=== PATIENT | male | born 1950 | race Caucasian/White ===

== ENCOUNTER 2018-01-26 13:26 | Emergency (ER) | payer MEDICARE, OTHER ==
[2018-01-26] MEDS: NICARDipine HCL 30 MG CAPSULE PO ×2 (13:45→14:26)
== END 2018-01-26 14:29 | disposition home or self-care (01) ==
LOC: E/R 13:26
DX: I12.0 Hypertensive chronic kidney disease with stage 5 chronic kidney disease or end stage renal disease (principal); R40.2142 Coma scale, eyes open, spontaneous, at arrival to emergency department; R40.2252 Coma scale, best verbal response, oriented, at arrival to emergency department; R40.2362 Coma scale, best motor response, obeys commands, at arrival to emergency department; N18.6 End stage renal disease; Z79.82 Long term (current) use of aspirin; Z99.2 Dependence on renal dialysis; Z87.891 Personal history of nicotine dependence
CPT/HCPCS: 93005; 99283; 99283-25

== ENCOUNTER 2018-11-05 09:40 | Inpatient (IN) | payer MEDICARE, OTHER ==
[2018-11-05 09:56] LABS: ADD MAN DIFF? NO
[2018-11-05] MEDS: ALBUTEROL 0.5% (NEB) 2.5 MG/0.5 ML AMP INH (09:59)
[2018-11-05 10:00] LABS: WHITE BLOOD COUNT 19.6 10^3/ul (4.8-10.8)
[2018-11-05 10:00] LABS: BASOPHILS % 0.2 % (0.0-2.0); EOSINOPHILS % 0.2 % (0.0-7.0); HEMATOCRIT 31.5 % (42.0-52.0); HEMOGLOBIN 9.9 g/dl (14.0-18.0); LYMPHOCYTES # 2.8 10^3/ul (0.8-2.9); LYMPHOCYTES % 14.1 % (15.0-51.0); MEAN CORPUSCULAR HEMOGLOBIN 30.3 pg (29.0-33.0); MEAN CORPUSCULAR HGB CONC 31.4 g/dl (32.0-37.0); MEAN CORPUSCULAR VOLUME 96.3 fl (82.0-101.0); MEAN PLATELET VOLUME 11.2 fl (7.4-10.4); MONOCYTE # 0.4 10^3/ul (0.3-0.9); MONOCYTES % 2.1 % (0.0-11.0); NEUTROPHIL # 16.2 10^3/ul (1.6-7.5); NEUTROPHILS % 82.6 % (39.0-77.0); PLATELET COUNT 347 10^3/UL (140-415); RED BLOOD COUNT 3.27 10^6/ul (4.70-6.10); RED CELL DISTRIBUTION WIDTH 14.3 % (11.5-14.5)
[2018-11-05] MEDS: NITROGLYCERIN 50 MG/D5W (PMX) 250 ML IV (10:01)
[2018-11-05] MEDS: ENALAPRILAT 1.25 MG INJ IV (10:17)
[2018-11-05 10:20] LABS: ALANINE AMINOTRANSFERASE 58 IU/L (13-69); ALBUMIN 4.3 g/dl (3.3-4.9); ALBUMIN/GLOBULIN RATIO 1.07; ALKALINE PHOSPHATASE 154 IU/L (42-121); ANION GAP 20 (5-13); ASPARTATE AMINO TRANSFERASE 99 IU/L (15-46); BILIRUBIN,INDIRECT 0.3 mg/dl (0-1.1); BILIRUBIN,TOTAL 0.3 mg/dl (0.2-1.3); BLOOD UREA NITROGEN 62 mg/dl (7-20); CALCIUM 8.9 mg/dl (8.4-10.2); CARBON DIOXIDE 20 mmol/L (21-31); CHLORIDE 98 mmol/L (97-110); CREATININE 10.22 mg/dl (0.61-1.24); Estimated GFR 5 mL/min (>60); GLUCOSE 321 mg/dl (70-220); POTASSIUM 5.4 mmol/L (3.5-5.1); SODIUM 138 mmol/L (135-144); TOTAL PROTEIN 8.3 g/dl (6.1-8.1)
[2018-11-05 10:39] LABS: TROPONIN-I 0.311 ng/ml (0.000-0.120)
[2018-11-05] MEDS: ASPIRIN 325 MG TAB PO (11:00)
[2018-11-05] MEDS ORDERED: ACETAMINOPHEN 325 MG TAB PO ×2 (12:00→15:30)
[2018-11-05] MEDS ORDERED: ONDANSETRON 4 MG INJ IV ×2 (12:00→15:30)
[2018-11-05] MEDS: CEFTRIAXONE 1 GM/50 ML (PMX) 50 ML IVPB (15:20)
[2018-11-05 15:29] LABS: B-TYPE NATRIURETIC PEPTIDE 29600 PG/ML (0-125)
[2018-11-05] MEDS ORDERED: GLUCOSE GEL 15 GRAM TUBE PO ×2 (15:30)
[2018-11-05] MEDS ORDERED: DEXTROSE 50% 50 ML SYRINGE IV ×2 (15:30)
[2018-11-05] MEDS ORDERED: ACETAMINOPHEN 650 MG SUPP PR (15:30)
[2018-11-05] MEDS ORDERED: NACL 0.9% 3 ML SYG IV (15:30)
[2018-11-05] MEDS ORDERED: GLUCAGON 1 MG INJ IM (15:30)
[2018-11-05] MEDS ORDERED: GLUCOSE GEL 15 GRAM TUBE BUCCAL (15:30)
[2018-11-05] MEDS: INSULIN ASPART [NOVOLOG] 3 ML PEN SC ×2 (17:30→21:52)
[2018-11-05 17:32] LABS: CREATINE KINASE 80 IU/L (23-200)
[2018-11-05 17:42] LABS: CK INDEX 4.1
[2018-11-05 17:47] LABS: TROPONIN-I 0.766 ng/ml (0.000-0.120)
[2018-11-05 17:49] LABS: CK-MB 3.27 ng/ml (0.0-2.4)
[2018-11-05 19:34] LABS: HEPATITIS B SURFACE ANTIGEN NEGATIVE (NEGATIVE)
[2018-11-05 19:52] LABS: HEPATITIS B SURFACE ANTIBODY POSITIVE (NEGATIVE)
[2018-11-05] MEDS: HEPARIN 1000 UNITS/ML 10 ML INJ CATHETER (20:20)
[2018-11-05] MEDS: ALBUTEROL/IPRATROPIUM (NEB) 3 ML AMP HHN (21:00)
[2018-11-05] MEDS: ATORVASTATIN 80 MG TAB PO (21:28)
[2018-11-05] MEDS: FAMOTIDINE 20 MG TAB PO (21:28)
[2018-11-05] MEDS: HEPARIN 5,000 UNIT/1 ML VIAL SC (21:51)
[2018-11-05] MEDS: INSULIN GLARGINE [LANTus] (100 UNITS/ML) SYG SC (21:51)
[2018-11-05 23:26] LABS: CREATINE KINASE 71 IU/L (23-200)
[2018-11-05 23:37] LABS: CK INDEX 4.1
[2018-11-05 23:41] LABS: CK-MB 2.89 ng/ml (0.0-2.4); TROPONIN-I 0.931 ng/ml (0.000-0.120)
[2018-11-06 00:33] LABS: AADO2 Arterial 133.4 mmHg (7.0-24.0); Allen Test ACCEPTAB; Arterial Base Excess 6.7 mmol/L (-3.0-3); Arterial Blood Gas Oxygen Sat 91.4 mmHG (95.0-98.0); Arterial COHb 0.3 % (0.0-3.0); Arterial Fraction of Oxyhgb 90.9 % (93.0-99.0); Arterial HCO3 30.1 mmol/L (22.0-26.0); Arterial MetHb 0.3 % (0.0-1.5); Arterial pCO2 38.2 mmhg (35-45); MODE NASAL CANNULA; Site Right Brachial
[2018-11-06] MEDS: ALBUTEROL/IPRATROPIUM (NEB) 3 ML AMP HHN ×3 (01:14→22:36)
[2018-11-06] MEDS: ASPIRIN (EC) 81 MG TAB PO ×2 (01:37→09:00)
[2018-11-06] MEDS: ACCU-CHEK XX (01:48)
[2018-11-06] MEDS: INSULIN ASPART [NOVOLOG] 3 ML PEN SC ×2 (01:48→05:00)
[2018-11-06] MEDS ORDERED: LIDOCAINE 1% (MDV) 20 ML INJ (06:51)
[2018-11-06] MEDS ORDERED: IODIXANOL LOCM 100 ML BTL (06:51)
[2018-11-06 07:02] LABS: ADD MAN DIFF? NO
[2018-11-06 07:20] LABS: BASOPHILS % 0.4 % (0.0-2.0); EOSINOPHILS # 0.2 10^3/ul (0.0-0.5); EOSINOPHILS % 2.1 % (0.0-7.0); HEMATOCRIT 23.3 % (42.0-52.0); HEMOGLOBIN 7.5 g/dl (14.0-18.0); LYMPHOCYTES # 1.3 10^3/ul (0.8-2.9); LYMPHOCYTES % 12.8 % (15.0-51.0); MEAN CORPUSCULAR HEMOGLOBIN 30.5 pg (29.0-33.0); MEAN CORPUSCULAR HGB CONC 32.2 g/dl (32.0-37.0); MEAN CORPUSCULAR VOLUME 94.7 fl (82.0-101.0); MEAN PLATELET VOLUME 11.6 fl (7.4-10.4); MONOCYTE # 0.8 10^3/ul (0.3-0.9); MONOCYTES % 7.6 % (0.0-11.0); NEUTROPHIL # 7.5 10^3/ul (1.6-7.5); NEUTROPHILS % 76.5 % (39.0-77.0); PLATELET COUNT 217 10^3/UL (140-415); RED BLOOD COUNT 2.46 10^6/ul (4.70-6.10); RED CELL DISTRIBUTION WIDTH 14.3 % (11.5-14.5)
[2018-11-06 07:20] LABS: WHITE BLOOD COUNT 9.8 10^3/ul (4.8-10.8)
[2018-11-06] MEDS ORDERED: FENTAnyl 50 MCG/ML VIAL (07:27)
[2018-11-06] MEDS ORDERED: MIDAZOLAM 1 MG/ML 2 ML INJ (07:27)
[2018-11-06 07:31] LABS: HEMOGLOBIN A1C 5.7 % (0-5.9)
[2018-11-06 07:34] LABS: INR 1.13; PARTIAL THROMBOPLASTIN TIME 30.2 Sec (23.0-35.0); PROTIME 14.6 Sec (11.9-14.9); PT RATIO 1.1
[2018-11-06 07:39] LABS: CREATINE KINASE 62 IU/L (23-200)
[2018-11-06 07:41] LABS: IRON 50 ug/dl (35-150)
[2018-11-06] MEDS ORDERED: CLOPIDOGREL 300 MG TAB ×2 (07:47→08:18)
[2018-11-06 07:51] LABS: % IRON SATURATION 30 % SAT (22-52); CK INDEX 4.1; TOTAL IRON BINDING CAPACITY 167 ug/dl (241-421)
[2018-11-06 07:57] LABS: ALANINE AMINOTRANSFERASE 43 IU/L (13-69); ALBUMIN 3.3 g/dl (3.3-4.9); ALKALINE PHOSPHATASE 82 IU/L (42-121); ANION GAP 12 (5-13); ASPARTATE AMINO TRANSFERASE 40 IU/L (15-46); BILIRUBIN,INDIRECT 0.3 mg/dl (0-1.1); BILIRUBIN,TOTAL 0.3 mg/dl (0.2-1.3); BLOOD UREA NITROGEN 37 mg/dl (7-20); CALCIUM 8.5 mg/dl (8.4-10.2); CARBON DIOXIDE 30 mmol/L (21-31); CHLORIDE 97 mmol/L (97-110); CREATININE 6.19 mg/dl (0.61-1.24); Estimated GFR 9 mL/min (>60); GLUCOSE 72 mg/dl (70-220); POTASSIUM 4.6 mmol/L (3.5-5.1); SODIUM 139 mmol/L (135-144); TOTAL PROTEIN 6.3 g/dl (6.1-8.1)
[2018-11-06 07:58] LABS: CHOL/HDL RATIO 3.6 RATIO; CHOLESTEROL 140 mg/dl (100-200); HDL CHOLESTEROL 38 mg/dl (30-78); LDL CHOLESTEROL,CALCULATED 87 mg/dl; MAGNESIUM 2.2 mg/dl (1.7-2.5); TRIGLYCERIDES 77 mg/dl (0-149)
[2018-11-06 07:58] LABS: PHOSPHORUS 5.3 mg/dl (2.5-4.9)
[2018-11-06] MEDS ORDERED: BIVALIRUDIN 250MG /NS 50 ML 50 ML IVPB (08:01)
[2018-11-06 08:16] LABS: CK-MB 2.57 ng/ml (0.0-2.4); TROPONIN-I 0.971 ng/ml (0.000-0.120)
[2018-11-06] MEDS: SOD CHLORIDE 0.9% 1,000 ML IV (08:16)
[2018-11-06] MEDS: BIVALIRUDIN 250 MG in SOD CHLORIDE 0.9% 500 ML IV (08:30)
[2018-11-06] MEDS ORDERED: OXYCODONE/ACETAMINOPHEN (5/325) TAB PO (08:30)
[2018-11-06 08:56] LABS: FREE T4 (FREE THYROXINE) 1.23 ng/dl (0.78-2.44)
[2018-11-06] MEDS: NIFEdipine (XL) 30 MG TAB PO (09:00)
[2018-11-06] MEDS: FAMOTIDINE 20 MG TAB PO (09:00)
[2018-11-06] MEDS: LOSARTAN 50 MG TAB PO (09:00)
[2018-11-06] MEDS: CHOLECALCIFEROL 1,000 UNIT TAB PO (09:00)
[2018-11-06] MEDS ORDERED: INFLUENZA VIRUS VACCINE 0.5 ML (DISPENSING) IM* (09:00)
[2018-11-06] MEDS ORDERED: MINOXIDIL 2.5 MG TAB PO (09:00)
[2018-11-06] MEDS ORDERED: morphine 2 MG INJ (10:44)
[2018-11-06] MEDS: morphine 2 MG INJ IV (10:59)
[2018-11-06] MEDS: SOD CHLORIDE 0.9% 250 ML IV* (11:04)
[2018-11-06] MEDS: ACETAMINOPHEN 325 MG TAB PO (13:18)
[2018-11-06] MEDS: CEFTRIAXONE 1 GM/50 ML (PMX) 50 ML IVPB (16:49)
[2018-11-06 20:54] LABS: IMMEDIATE SPIN CROSSMATCH 1 2
[2018-11-06] MEDS: HEPARIN 1000 UNITS/ML 10 ML INJ CATHETER (22:25)
[2018-11-07] MEDS: ATORVASTATIN 80 MG TAB PO ×2 (00:17→22:16)
[2018-11-07] MEDS: FAMOTIDINE 20 MG TAB PO ×3 (00:18→22:19)
[2018-11-07] MEDS: ALBUTEROL/IPRATROPIUM (NEB) 3 ML AMP HHN ×6 (01:30→20:07)
[2018-11-07 06:05] LABS: ADD MAN DIFF? NO
[2018-11-07 06:06] LABS: WHITE BLOOD COUNT 7.9 10^3/ul (4.8-10.8)
[2018-11-07 06:06] LABS: BASOPHIL # 0.1 10^3/ul (0.0-0.1); EOSINOPHILS # 0.5 10^3/ul (0.0-0.5); EOSINOPHILS % 6.8 % (0.0-7.0); HEMOGLOBIN 9.1 g/dl (14.0-18.0); LYMPHOCYTES # 0.9 10^3/ul (0.8-2.9); LYMPHOCYTES % 11.8 % (15.0-51.0); MEAN CORPUSCULAR HEMOGLOBIN 29.8 pg (29.0-33.0); MEAN CORPUSCULAR HGB CONC 32.5 g/dl (32.0-37.0); MEAN CORPUSCULAR VOLUME 91.8 fl (82.0-101.0); MEAN PLATELET VOLUME 11.4 fl (7.4-10.4); MONOCYTE # 0.8 10^3/ul (0.3-0.9); MONOCYTES % 10.2 % (0.0-11.0); NEUTROPHIL # 5.5 10^3/ul (1.6-7.5); NEUTROPHILS % 69.9 % (39.0-77.0); PLATELET COUNT 206 10^3/UL (140-415); RED BLOOD COUNT 3.05 10^6/ul (4.70-6.10); RED CELL DISTRIBUTION WIDTH 15.5 % (11.5-14.5)
[2018-11-07 06:33] LABS: ANION GAP 9 (5-13); BLOOD UREA NITROGEN 27 mg/dl (7-20); CALCIUM 8.7 mg/dl (8.4-10.2); CARBON DIOXIDE 26 mmol/L (21-31); CHLORIDE 106 mmol/L (97-110); CREATINE KINASE 112 IU/L (23-200); Estimated GFR 12 mL/min (>60); GLUCOSE 83 mg/dl (70-220); POTASSIUM 4.7 mmol/L (3.5-5.1); SODIUM 141 mmol/L (135-144)
[2018-11-07 06:38] LABS: CK INDEX 7.2
[2018-11-07 06:48] LABS: CK-MB 8.06 ng/ml (0.0-2.4)
[2018-11-07] MEDS: CHOLECALCIFEROL 1,000 UNIT TAB PO (08:10)
[2018-11-07] MEDS: ASPIRIN (EC) 81 MG TAB PO (08:11)
[2018-11-07] MEDS: CLOPIDOGREL 75 MG TAB PO (08:11)
[2018-11-07] MEDS: NIFEdipine (XL) 30 MG TAB PO (08:11)
[2018-11-07] MEDS: LOSARTAN 50 MG TAB PO (08:12)
[2018-11-07] MEDS: CEFTRIAXONE 1 GM/50 ML (PMX) 50 ML IVPB (16:20)
[2018-11-07] MEDS: hydrALAzine 20 MG INJ IV (16:50)
[2018-11-08] MEDS: ALBUTEROL/IPRATROPIUM (NEB) 3 ML AMP HHN ×3 (00:16→09:44)
[2018-11-08 05:58] LABS: ADD MAN DIFF? NO
[2018-11-08 06:20] LABS: BASOPHIL # 0.1 10^3/ul (0.0-0.1); BASOPHILS % 0.7 % (0.0-2.0); EOSINOPHILS # 0.6 10^3/ul (0.0-0.5); EOSINOPHILS % 8.7 % (0.0-7.0); HEMATOCRIT 26.1 % (42.0-52.0); HEMOGLOBIN 8.7 g/dl (14.0-18.0); LYMPHOCYTES % 14.3 % (15.0-51.0); MEAN CORPUSCULAR HEMOGLOBIN 30.3 pg (29.0-33.0); MEAN CORPUSCULAR HGB CONC 33.3 g/dl (32.0-37.0); MEAN CORPUSCULAR VOLUME 90.9 fl (82.0-101.0); MEAN PLATELET VOLUME 11.4 fl (7.4-10.4); MONOCYTE # 0.9 10^3/ul (0.3-0.9); MONOCYTES % 13.5 % (0.0-11.0); NEUTROPHIL # 4.3 10^3/ul (1.6-7.5); NEUTROPHILS % 62.5 % (39.0-77.0); PLATELET COUNT 173 10^3/UL (140-415); RED BLOOD COUNT 2.87 10^6/ul (4.70-6.10); RED CELL DISTRIBUTION WIDTH 14.8 % (11.5-14.5)
[2018-11-08 06:20] LABS: WHITE BLOOD COUNT 6.9 10^3/ul (4.8-10.8)
[2018-11-08 06:29] LABS: ALANINE AMINOTRANSFERASE 34 IU/L (13-69); ALBUMIN 3.4 g/dl (3.3-4.9); ALBUMIN/GLOBULIN RATIO 1.17; ALKALINE PHOSPHATASE 76 IU/L (42-121); ANION GAP 14 (5-13); ASPARTATE AMINO TRANSFERASE 29 IU/L (15-46); BILIRUBIN,INDIRECT 0.4 mg/dl (0-1.1); BILIRUBIN,TOTAL 0.4 mg/dl (0.2-1.3); BLOOD UREA NITROGEN 30 mg/dl (7-20); CALCIUM 8.2 mg/dl (8.4-10.2); CARBON DIOXIDE 29 mmol/L (21-31); CHLORIDE 97 mmol/L (97-110); CREATININE 4.55 mg/dl (0.61-1.24); Estimated GFR 13 mL/min (>60); GLUCOSE 89 mg/dl (70-220); POTASSIUM 4.1 mmol/L (3.5-5.1); SODIUM 140 mmol/L (135-144); TOTAL PROTEIN 6.3 g/dl (6.1-8.1)
[2018-11-08 06:32] LABS: CREATINE KINASE 74 IU/L (23-200)
[2018-11-08 06:43] LABS: CK INDEX 4.4
[2018-11-08 06:44] LABS: CK-MB 3.25 ng/ml (0.0-2.4)
[2018-11-08] MEDS: NIFEdipine (XL) 30 MG TAB PO (08:15)
[2018-11-08] MEDS: CLOPIDOGREL 75 MG TAB PO (08:15)
[2018-11-08] MEDS: CHOLECALCIFEROL 1,000 UNIT TAB PO (08:15)
[2018-11-08] MEDS: ASPIRIN (EC) 81 MG TAB PO (08:16)
[2018-11-08] MEDS: LOSARTAN 50 MG TAB PO (08:16)
[2018-11-08] MEDS: FAMOTIDINE 20 MG TAB PO (08:16)
[2018-11-08] MEDS ORDERED: EPOETIN 10000 UNITS/1 ML INJ (ESRD) SC (17:00)
== END 2018-11-08 16:15 | disposition home or self-care (01) | DRG 246 ==
LOC: 6WM 11-06 10:21 → E/R 09:40 → REC 11-06 10:28 → 6WM 11-06 15:57
PROC: 027034Z Dilation of Coronary Artery, One Artery with Drug-eluting Intraluminal Device, Percutaneous Approach (ICD-10-PCS; principal; 2018-11-06 07:13)
PROC: 5A09457 Assistance with Respiratory Ventilation, 24-96 Consecutive Hours, Continuous Positive Airway Pressure (ICD-10-PCS; 2018-11-06 07:13)
PROC: 5A1D70Z Performance of Urinary Filtration, Intermittent, Less than 6 Hours Per Day (ICD-10-PCS; 2018-11-06 07:13)
PROC: 5A1D70Z Performance of Urinary Filtration, Intermittent, Less than 6 Hours Per Day (ICD-10-PCS; 2018-11-06 07:13)
PROC: 5A1D70Z Performance of Urinary Filtration, Intermittent, Less than 6 Hours Per Day (ICD-10-PCS; 2018-11-06 07:13)
PROC: 4A023N7 Measurement of Cardiac Sampling and Pressure, Left Heart, Percutaneous Approach (ICD-10-PCS; 2018-11-06 07:13)
PROC: B211YZZ Fluoroscopy of Multiple Coronary Arteries using Other Contrast (ICD-10-PCS; 2018-11-06 07:13)
PROC: B215YZZ Fluoroscopy of Left Heart using Other Contrast (ICD-10-PCS; 2018-11-06 07:13)
PROC: 30233N1 Transfusion of Nonautologous Red Blood Cells into Peripheral Vein, Percutaneous Approach (ICD-10-PCS; 2018-11-06 07:13)
DX: I21.4 Non-ST elevation (NSTEMI) myocardial infarction (principal); J96.01 Acute respiratory failure with hypoxia; I50.33 Acute on chronic diastolic (congestive) heart failure; N18.6 End stage renal disease; I13.2 Hypertensive heart and chronic kidney disease with heart failure and with stage 5 chronic kidney disease, or end stage renal disease; E87.5 Hyperkalemia; D63.1 Anemia in chronic kidney disease; E55.9 Vitamin D deficiency, unspecified; I25.10 Atherosclerotic heart disease of native coronary artery without angina pectoris; M1A.9XX0 Chronic gout, unspecified, without tophus (tophi); G47.33 Obstructive sleep apnea (adult) (pediatric); Z79.82 Long term (current) use of aspirin; Z99.2 Dependence on renal dialysis; Z87.891 Personal history of nicotine dependence
CPT/HCPCS: 36415; 36430; 36600; 71045; 80048; 80053; 80061; 82550; 82553; 82728; 82803; 82962; 83036; 83540; 83735; 83880; 84100; 84439; 84443; 84484; 85025; 85610; 85730; 86706; 86850; 86900; 86901; 86920; 87040; 87340; 87400; 90686; 90935; 93005; 93306; 93458; 94640; 94644; 94660; 94664; 96374; 99285-25; J0583

== ENCOUNTER 2018-12-11 13:36 | Inpatient (IN) | payer MEDICARE, OTHER ==
[2018-12-11] MEDS: SOD CHLORIDE 0.9% 1,000 ML IV (00:15)
[2018-12-11 14:46] LABS: ADD MAN DIFF? NO
[2018-12-11 14:50] LABS: WHITE BLOOD COUNT 5.6 10^3/ul (4.8-10.8)
[2018-12-11 14:50] LABS: ABNORMAL IP MESSAGE 1; BASOPHILS % 0.4 % (0.0-2.0); EOSINOPHILS # 0.4 10^3/ul (0.0-0.5); EOSINOPHILS % 7.6 % (0.0-7.0); HEMATOCRIT 18.6 % (42.0-52.0); LYMPHOCYTES % 17.4 % (15.0-51.0); MEAN CORPUSCULAR HEMOGLOBIN 31.6 pg (29.0-33.0); MEAN CORPUSCULAR HGB CONC 33.3 g/dl (32.0-37.0); MEAN CORPUSCULAR VOLUME 94.9 fl (82.0-101.0); MEAN PLATELET VOLUME 10.4 fl (7.4-10.4); MONOCYTE # 0.6 10^3/ul (0.3-0.9); MONOCYTES % 10.5 % (0.0-11.0); NEUTROPHIL # 3.6 10^3/ul (1.6-7.5); NEUTROPHILS % 63.7 % (39.0-77.0); PLATELET COUNT 135 10^3/UL (140-415); POSITIVE DIFF @See below; RED BLOOD COUNT 1.96 10^6/ul (4.70-6.10)
[2018-12-11 14:58] LABS: HEMOGLOBIN 6.2 g/dl (14.0-18.0)
[2018-12-11 14:59] LABS: PATH REVIEW? YES
[2018-12-11 15:08] LABS: INR 1.07; PT RATIO 1.1
[2018-12-11 15:09] LABS: PARTIAL THROMBOPLASTIN TIME 31.8 Sec (23.0-35.0)
[2018-12-11 15:17] LABS: ALANINE AMINOTRANSFERASE 16 IU/L (13-69); ALBUMIN 3.5 g/dl (3.3-4.9); ALBUMIN/GLOBULIN RATIO 1.16; ALKALINE PHOSPHATASE 70 IU/L (42-121); ANION GAP 13 (5-13); ASPARTATE AMINO TRANSFERASE 17 IU/L (15-46); BILIRUBIN,INDIRECT 0.1 mg/dl (0-1.1); BILIRUBIN,TOTAL 0.1 mg/dl (0.2-1.3); BLOOD UREA NITROGEN 54 mg/dl (7-20); CARBON DIOXIDE 28 mmol/L (21-31); CHLORIDE 98 mmol/L (97-110); CREATININE 7.27 mg/dl (0.61-1.24); Estimated GFR 8 mL/min (>60); GLUCOSE 105 mg/dl (70-220); POTASSIUM 4.8 mmol/L (3.5-5.1); SODIUM 139 mmol/L (135-144); TOTAL PROTEIN 6.5 g/dl (6.1-8.1)
[2018-12-11 15:27] LABS: TROPONIN-I 0.016 ng/ml (0.000-0.120)
[2018-12-11 15:51] LABS: ANISOCYTOSIS 3+ (0-0); BAND NEUTROPHILS #M 0.1 10^3/ul (0.0-0.6); BAND NEUTROPHILS % (M) 2 % (0-4); EOSINOPHILS % (M) 11 % (0-7); HYPOCHROMASIA 3+ (0-0); LYMPHOCYTES #M 0.9 10^3/ul (0.8-2.9); LYMPHOCYTES % (M) 17 % (15-51); MICROCYTOSIS 3+ (0-0); MONOCYTE #M 0.4 10^3/ul (0.3-0.9); MONOCYTES % (M) 8 % (0-11); PLATELET ESTIMATE DECREASED; POIKILOCYTOSIS 3+ (0-0); POLYCHROMASIA 2+ (0-0); SEG NEUT #M 3.5 10^3/ul (1.6-7.5); SEGMENTED NEUTROPHILS (M) % 62 % (39-77); SMUDGE%M 4 % (0-0)
[2018-12-11] MEDS ORDERED: ACETAMINOPHEN 325 MG TAB PO ×2 (19:30→21:00)
[2018-12-11] MEDS ORDERED: ONDANSETRON 4 MG INJ IV ×2 (19:30→21:00)
[2018-12-11] MEDS ORDERED: DOCUSATE SODIUM 100 MG CAP PO (21:00)
[2018-12-11] MEDS: ALBUTEROL HFA 8 GM INHALER INH (21:00)
[2018-12-11] MEDS ORDERED: morphine 2 MG INJ IV (21:00)
[2018-12-11] MEDS ORDERED: NACL 0.9% 3 ML SYG IV (21:00)
[2018-12-11] MEDS ORDERED: BISACODYL (EC) 5 MG TAB PO (21:00)
[2018-12-12] MEDS: ALBUTEROL HFA 8 GM INHALER INH ×6 (01:00→21:32)
[2018-12-12 01:07] LABS: HEMATOCRIT 20.5 % (42.0-52.0); HEMOGLOBIN 7.1 g/dl (14.0-18.0)
[2018-12-12] MEDS ORDERED: FUROSEMIDE 20 MG INJ IV (02:00)
[2018-12-12 07:37] LABS: ADD MAN DIFF? NO
[2018-12-12 07:39] LABS: WHITE BLOOD COUNT 6.7 10^3/ul (4.8-10.8)
[2018-12-12 07:39] LABS: BASOPHILS % 0.4 % (0.0-2.0); EOSINOPHILS # 0.5 10^3/ul (0.0-0.5); EOSINOPHILS % 7.7 % (0.0-7.0); HEMATOCRIT 23.4 % (42.0-52.0); LYMPHOCYTES # 0.9 10^3/ul (0.8-2.9); LYMPHOCYTES % 12.8 % (15.0-51.0); MEAN CORPUSCULAR HEMOGLOBIN 31.1 pg (29.0-33.0); MEAN CORPUSCULAR HGB CONC 34.2 g/dl (32.0-37.0); MEAN CORPUSCULAR VOLUME 91.1 fl (82.0-101.0); MEAN PLATELET VOLUME 10.4 fl (7.4-10.4); MONOCYTE # 0.6 10^3/ul (0.3-0.9); MONOCYTES % 8.9 % (0.0-11.0); NEUTROPHIL # 4.7 10^3/ul (1.6-7.5); NEUTROPHILS % 69.9 % (39.0-77.0); PLATELET COUNT 105 10^3/UL (140-415); RED BLOOD COUNT 2.57 10^6/ul (4.70-6.10); RED CELL DISTRIBUTION WIDTH 15.6 % (11.5-14.5)
[2018-12-12 08:02] LABS: ALANINE AMINOTRANSFERASE 17 IU/L (13-69); ALBUMIN 3.2 g/dl (3.3-4.9); ALBUMIN/GLOBULIN RATIO 1.33; ALKALINE PHOSPHATASE 57 IU/L (42-121); ANION GAP 12 (5-13); ASPARTATE AMINO TRANSFERASE 18 IU/L (15-46); BILIRUBIN,INDIRECT 0.6 mg/dl (0-1.1); BILIRUBIN,TOTAL 0.6 mg/dl (0.2-1.3); BLOOD UREA NITROGEN 65 mg/dl (7-20); CALCIUM 7.7 mg/dl (8.4-10.2); CARBON DIOXIDE 24 mmol/L (21-31); CHLORIDE 100 mmol/L (97-110); Estimated GFR 6 mL/min (>60); GLUCOSE 88 mg/dl (70-220); MAGNESIUM 2.2 mg/dl (1.7-2.5); POTASSIUM 5.8 mmol/L (3.5-5.1); SODIUM 136 mmol/L (135-144); TOTAL PROTEIN 5.6 g/dl (6.1-8.1)
[2018-12-12] MEDS: NIFEdipine (XL) 30 MG TAB PO (09:00)
[2018-12-12] MEDS: SOD CHLORIDE 0.9% 250 ML IV* (10:17)
[2018-12-12 13:26] LABS: IMMEDIATE SPIN CROSSMATCH 1 4
[2018-12-12 13:52] LABS: HEPATITIS B SURFACE ANTIGEN NEGATIVE (NEGATIVE)
[2018-12-12] MEDS: BISACODYL (EC) 5 MG TAB PO (15:58)
[2018-12-12] MEDS: HEPARIN 1000 UNITS/ML 10 ML INJ CATHETER (16:44)
[2018-12-12] MEDS: PEG/ELECTROLYTES 4L BTL PO (17:00)
[2018-12-12 17:51] LABS: HEMATOCRIT 28.1 % (42.0-52.0); HEMOGLOBIN 9.8 g/dl (14.0-18.0)
[2018-12-12] MEDS: ATORVASTATIN 40 MG TAB PO (21:31)
[2018-12-12 22:25] LABS: HEMATOCRIT 31.3 % (42.0-52.0); HEMOGLOBIN 10.8 g/dl (14.0-18.0)
[2018-12-12] MEDS: hydrALAzine 20 MG INJ IV (23:37)
[2018-12-13] MEDS: ALBUTEROL HFA 8 GM INHALER INH ×6 (01:00→20:23)
[2018-12-13] MEDS: BISACODYL (EC) 5 MG TAB PO (05:13)
[2018-12-13] MEDS: PEG/ELECTROLYTES 4L BTL PO (05:14)
[2018-12-13 06:44] LABS: ADD MAN DIFF? NO
[2018-12-13 06:49] LABS: BASOPHILS % 0.6 % (0.0-2.0); EOSINOPHILS # 0.8 10^3/ul (0.0-0.5); HEMOGLOBIN 10.4 g/dl (14.0-18.0); LYMPHOCYTES # 1.1 10^3/ul (0.8-2.9); LYMPHOCYTES % 15.8 % (15.0-51.0); MEAN CORPUSCULAR HEMOGLOBIN 31.4 pg (29.0-33.0); MEAN CORPUSCULAR HGB CONC 34.7 g/dl (32.0-37.0); MEAN CORPUSCULAR VOLUME 90.6 fl (82.0-101.0); MEAN PLATELET VOLUME 11.3 fl (7.4-10.4); MONOCYTE # 0.7 10^3/ul (0.3-0.9); NEUTROPHIL # 4.4 10^3/ul (1.6-7.5); NEUTROPHILS % 62.6 % (39.0-77.0); POSITIVE DIFF @See below; RED BLOOD COUNT 3.31 10^6/ul (4.70-6.10); RED CELL DISTRIBUTION WIDTH 15.4 % (11.5-14.5)
[2018-12-13 07:00] LABS: PLATELET COUNT 131 10^3/UL (140-415)
[2018-12-13] MEDS ORDERED: PROPOFOL 200 MG INJ (07:00)
[2018-12-13 07:23] LABS: MAGNESIUM 2.1 mg/dl (1.7-2.5)
[2018-12-13 07:23] LABS: PHOSPHORUS 5.1 mg/dl (2.5-4.9)
[2018-12-13 07:28] LABS: ALANINE AMINOTRANSFERASE 16 IU/L (13-69); ALBUMIN 3.8 g/dl (3.3-4.9); ALBUMIN/GLOBULIN RATIO 1.15; ALKALINE PHOSPHATASE 75 IU/L (42-121); ANION GAP 12 (5-13); ASPARTATE AMINO TRANSFERASE 26 IU/L (15-46); BILIRUBIN,INDIRECT 0.6 mg/dl (0-1.1); BILIRUBIN,TOTAL 0.6 mg/dl (0.2-1.3); BLOOD UREA NITROGEN 31 mg/dl (7-20); CARBON DIOXIDE 31 mmol/L (21-31); CHLORIDE 98 mmol/L (97-110); CHOL/HDL RATIO 5.1 RATIO; CHOLESTEROL 145 mg/dl (100-200); CREATINE KINASE 156 IU/L (23-200); CREATININE 6.53 mg/dl (0.61-1.24); Estimated GFR 9 mL/min (>60); GLUCOSE 85 mg/dl (70-220); HDL CHOLESTEROL 28 mg/dl (30-78); LDL CHOLESTEROL,CALCULATED 77 mg/dl; POTASSIUM 4.7 mmol/L (3.5-5.1); SODIUM 141 mmol/L (135-144); TOTAL PROTEIN 7.1 g/dl (6.1-8.1); TRIGLYCERIDES 200 mg/dl (0-149)
[2018-12-13] MEDS: NIFEdipine (XL) 30 MG TAB PO (08:39)
[2018-12-13] MEDS: PROPOFOL 40 ML (15:18)
[2018-12-13] MEDS: FENTAnyl 50 MCG/ML VIAL (15:18)
[2018-12-13] MEDS: LIDOCAINE 2% (SDV) 5 ML INJ (15:18)
[2018-12-13] MEDS: SOD CHLORIDE 0.9% 100 ML (19:42)
[2018-12-13] MEDS: IODIXANOL LOCM 100 ML BTL (19:42)
[2018-12-13] MEDS: ATORVASTATIN 40 MG TAB PO (20:23)
[2018-12-14] MEDS: ALBUTEROL HFA 8 GM INHALER INH ×5 (01:00→16:53)
[2018-12-14 07:07] LABS: ADD MAN DIFF? NO
[2018-12-14 07:23] LABS: BASOPHILS % 0.4 % (0.0-2.0); EOSINOPHILS # 0.7 10^3/ul (0.0-0.5); EOSINOPHILS % 10.1 % (0.0-7.0); HEMOGLOBIN 9.4 g/dl (14.0-18.0); LYMPHOCYTES # 1.1 10^3/ul (0.8-2.9); LYMPHOCYTES % 15.6 % (15.0-51.0); MEAN CORPUSCULAR HEMOGLOBIN 30.4 pg (29.0-33.0); MEAN CORPUSCULAR HGB CONC 33.6 g/dl (32.0-37.0); MEAN CORPUSCULAR VOLUME 90.6 fl (82.0-101.0); MEAN PLATELET VOLUME 11.3 fl (7.4-10.4); MONOCYTE # 0.7 10^3/ul (0.3-0.9); MONOCYTES % 10.2 % (0.0-11.0); NEUTROPHIL # 4.3 10^3/ul (1.6-7.5); NEUTROPHILS % 63.4 % (39.0-77.0); PLATELET COUNT 124 10^3/UL (140-415); RED BLOOD COUNT 3.09 10^6/ul (4.70-6.10); RED CELL DISTRIBUTION WIDTH 14.6 % (11.5-14.5)
[2018-12-14 07:23] LABS: WHITE BLOOD COUNT 6.9 10^3/ul (4.8-10.8)
[2018-12-14 07:38] LABS: ANION GAP 13 (5-13); BLOOD UREA NITROGEN 43 mg/dl (7-20); CALCIUM 8.1 mg/dl (8.4-10.2); CARBON DIOXIDE 27 mmol/L (21-31); CHLORIDE 98 mmol/L (97-110); CREATININE 9.03 mg/dl (0.61-1.24); Estimated GFR 6 mL/min (>60); GLUCOSE 76 mg/dl (70-220); POTASSIUM 4.8 mmol/L (3.5-5.1); SODIUM 138 mmol/L (135-144)
[2018-12-14 07:46] LABS: MAGNESIUM 2.2 mg/dl (1.7-2.5)
[2018-12-14 07:46] LABS: PHOSPHORUS 7.7 mg/dl (2.5-4.9)
[2018-12-14] MEDS: NIFEdipine (XL) 30 MG TAB PO (08:31)
[2018-12-14] MEDS: CLOPIDOGREL 75 MG TAB PO (16:52)
[2018-12-14] MEDS: ASPIRIN (EC) 81 MG TAB PO (16:52)
[2018-12-14] MEDS: HEPARIN 1000 UNITS/ML 10 ML INJ CATHETER (18:07)
[2018-12-14] MEDS ORDERED: ATORVASTATIN 80 MG TAB PO (21:00)
== END 2018-12-14 20:55 | disposition home or self-care (01) | DRG 377 ==
LOC: TEL 19:19 → E/R 13:36
PROC: 0DB98ZX Excision of Duodenum, Via Natural or Artificial Opening Endoscopic, Diagnostic (ICD-10-PCS; principal; 2018-12-13 14:50)
PROC: 0DB48ZX Excision of Esophagogastric Junction, Via Natural or Artificial Opening Endoscopic, Diagnostic (ICD-10-PCS; 2018-12-13 14:50)
PROC: 0DBP8ZX Excision of Rectum, Via Natural or Artificial Opening Endoscopic, Diagnostic (ICD-10-PCS; 2018-12-13 14:50)
PROC: 5A1D70Z Performance of Urinary Filtration, Intermittent, Less than 6 Hours Per Day (ICD-10-PCS; 2018-12-13 14:50)
PROC: 30233P1 Transfusion of Nonautologous Frozen Red Cells into Peripheral Vein, Percutaneous Approach (ICD-10-PCS; 2018-12-13 14:50)
DX: K92.1 Melena (principal); N18.6 End stage renal disease; D62 Acute posthemorrhagic anemia; I13.2 Hypertensive heart and chronic kidney disease with heart failure and with stage 5 chronic kidney disease, or end stage renal disease; E11.22 Type 2 diabetes mellitus with diabetic chronic kidney disease; Z99.2 Dependence on renal dialysis; E78.5 Hyperlipidemia, unspecified; D63.1 Anemia in chronic kidney disease; Z95.5 Presence of coronary angioplasty implant and graft; Z79.82 Long term (current) use of aspirin; Z79.02 Long term (current) use of antithrombotics/antiplatelets; Z87.891 Personal history of nicotine dependence; I50.9 Heart failure, unspecified; I25.2 Old myocardial infarction; K64.8 Other hemorrhoids; K62.1 Rectal polyp; K57.90 Diverticulosis of intestine, part unspecified, without perforation or abscess without bleeding; D69.6 Thrombocytopenia, unspecified
CPT/HCPCS: 36415; 36430; 74177; 80048; 80053; 80061; 82550; 83735; 84100; 84484; 85014; 85018; 85025; 85610; 85730; 86850; 86900; 86901; 86920; 87081; 87340; 88305; 88312; 88313; 90935; 93005; 99285-25